=== PATIENT | female | born 2000 | race Caucasian/White ===

== ENCOUNTER → 2025-06-06 | Outpatient (CLI) | payer BC ==
[2025-06-06 11:08] LABS: BILIRUBIN Negative (Negative); BLOOD Negative (Negative); CLARITY Clear (Clear); COLOR Yellow (Yellow); KETONE Negative (Negative); LEUKO ESTERASE 2+ (Negative); NITRITE Negative (Negative); PH 8.0 (4.5-8.0); SPECIFIC GRAVITY <= 1.005 (1.001-1.030); UROBILINOGEN 0.2 E.U./dl (0.0-1.0)
[2025-06-06 11:28] LABS: BACTERIA 1+; WBC 21-30 wbc/hpf (0-5)
== END | disposition home or self-care (01) ==
LOC: LAB 10:29
PROVIDERS: ATTEND Physician Assistant Medical
DX: R30.0 Dysuria (principal)